=== PATIENT | female | born 1940 | race Caucasian/White ===

== ENCOUNTER → 2016-07-01 | Outpatient (CLI) | payer OTHER | LOC: RAD 04:49 | DX: Z12.31 Encounter for screening mammogram for malignant neoplasm of breast (principal) ==

== ENCOUNTER → 2017-07-03 | Outpatient (CLI) | payer OTHER | LOC: RAD 01:13 | DX: Z12.31 Encounter for screening mammogram for malignant neoplasm of breast (principal) ==

== ENCOUNTER → 2018-02-12 | Outpatient (CLI) | payer OTHER ==
[~2018-02-12] VITALS: Ht 180.3 cm; Wt 117.9 kg
[~2018-02-12] MED LIST: ASPIR 8181 MG PO; ATENOLOL 100MG100 MG PO; CENTRUM SILVER1 EAC4 PO; CO Q-10100 M1 PO; FISH OIL 1,001000 M2 PO; LOSARTAN-HCTZ1 EAC2 PO; OMEPRAZOLE 20 M20 M1 PO; PRAVACHOL40 MG PO; SYNTHROID100 MC1 PO; TYLENOL325 MG PO; VITAMIN B-12500 MCG PO; VITAMIN D1000 UNI2 PO; VITAMIN E400 UNIT PO
--- NOTE | ~2018-02-12 | P ---
[facility] [place] [address] [address] PROCEDURE REPORT Name: EVONNE VELASCO Room #: REG [facility]#: [id number] Admission: 02/12/18 Attend Phys: Vidal Masters MD Discharge: Date of : 42 Report #: [id number] THIS REPORT FOR: //name// CC: Vidal Murphy BRIEF HISTORY: The patient is a 78-year-old woman known. She has a history of colon polyps and last exam was 3 years ago. She also has a history of microscopic colitis. She had a recent physical exam, was found to have Hemoccult positive stools. PREOPERATIVE DIAGNOSES: 1. Hemoccult-positive stools 2. History of colon polyps. 3. History of microscopic colitis. POSTOPERATIVE DIAGNOSIS: Small internal hemorrhoids. MEDICATIONS: Deep sedation with propofol per anesthesia. SPECIMENS: 1. Random biopsies, proximal colon, rule out colitis. 2. Random biopsies, distal colon, rule out colitis. ESTIMATED BLOOD LOSS: 3 mL. PROCEDURE: Colonoscopy to cecum and terminal ileum with biopsy. FINDINGS: Prior to propofol sedation, procedure of colonoscopy was discussed with the patient as well as potential risks and its complications. She indicates she understands and desires to proceed. DESCRIPTION OF PROCEDURE: With the patient in left lateral decubitus position, digital examination was completed, which revealed no abnormalities. Subsequently, the Olympus video colonoscope was introduced in the rectum, advanced under direct vision to the cecum. This was done was with minimal difficulty. Cecum was identified by the ileocecal valve and the appendiceal orifice. I was able to visualize the distal segment of terminal ileum, which was inspected and noted to be unremarkable. At that point, scope was slowly withdrawn and careful circumferential views obtained including retroflexion of the scope in the ascending colon. Upon slow withdrawal of the scope, the prep was excellent. The mucosa was within normal limits, normal vascular pattern, normal light reflex. As we withdrew the scope, the mucosa was inspected. Overall, the mucosa was intact. There were some very vague mild changes throughout the colon with mild loss of vascularity, mostly in the proximal colon, in somewhat distorted vascular pattern in the distal colon, but again, [facility] [address] [place] [address] PROCEDURE REPORT Name: EVONNE VELASCO Room #: REG [facility].#: [id number] Admission: 02/12/18 Attend Phys: Vidal Masters MD Discharge: Date of : 42 Report #: [id number] there were no ulcers or erosions. Multiple random biopsies were obtained in view of her history of microscopic colitis and problems with diarrhea. As far as Hemoccult-positive stools, no bleeding lesions were seen. Scope was withdrawn in the rectum and no abnormalities were seen. However, upon retroflexion, small nonbleeding hemorrhoids were seen. This was potentially the source of her Hemoccult-positive stools. Scope was withdrawn. The patient tolerated the procedure well. CONDITION OF THE PATIENT UPON DISCHARGE: Following procedure, the patient drowsy, arousable, conversant and will be discharged home when fully ambulatory. INSTRUCTIONS TO THE PATIENT AND FAMILY AT THE TIME OF DISCHARGE: No bleeding lesions were seen. The blood may have come from hemorrhoids. We will follow up on the path report with regard to microscopic colitis. She does have Colestid at home and she may continue to use Colestid as needed. She may require use of budesonide. Again, we will make further recommendations after review of the path report. No polyps were seen. Therefore, his typical recommendation will be to return in 10 years. At this point in life, there may be minimal benefit from continued routine surveillance. In addition, due to her diarrhea, we will have her return for followup in the office to further discuss strategies for long-term treatment of microscopic colitis. Last colonoscopy was 3 years ago. Withdrawal time from cecum was 11 minutes 29 seconds. By: 0900 0946 Vidal Masters MD /abel
--- NOTE | ~2018-02-12 | PATH ---
[facility] [address] [place] [address] PATHOLOGY RPT PROCEDURE Name: CRISTINA VELASCO Room #: REG [facility] [place].#: [id number] Admission: 02/12/18 Date of : 42 Discharge: Report #: [id number] Path Case #: [id number] [facility] Accession Number: [id number] . 01 Material submitted: . PART A: RANDOM BX AT PROX COLON RE: DIARRHEA R/O MICROSCOPIC COLITIS PART B: RANDOM BX OF DISTAL COLON RE: DIARRHEA R/O MICROSCOPIC COLITIS . 01 Clinical history: . Diarrhea, blood in stool . 02 Diagnosis: A. Large intestinal mucosa, proximal colon, endoscopic biopsy: - Mild to moderate acute colitis involving all fragments sampled. - Negative for microscopic colitis. - Negative for dysplasia or malignancy. . B. Large intestinal mucosa, distal colon, endoscopic biopsy: - Mild to moderate acute colitis involving all fragments sampled. - Negative for microscopic colitis. - Negative for dysplasia or malignancy. . (IUV:mml; 02/13/18) QLM/02/13/2018 . 02 Comment: Sections of the colonic mucosa designated "proximal colon and distal colon" show numerous foci of cryptitis, and a markedly cellular lamina propria composed predominantly of lymphocytes and plasma cells and occasional eosinophils. Surface ulceration is not identified. There are no crypt abscesses, granulomas or viral inclusions. The process affects all the fragments with a similar intensity. Given the description, the differential diagnosis includes active colitis due to an infectious etiology, acute diverticulitis, and inflammatory bowel disease, as well as medication-induced colitis. Please correlate with clinical as well as endoscopic findings. . (IUV:mml; 02/13/18) . 02 Electronically signed: . Vanessa Mir MD, Pathologist NPI- [id number] . 01 Gross description: . A. Received in formalin labeled "Cristina Velasco, random colon BX proximal colon re diarrhea, rule out microscopic colitis," are multiple segments of fernandez soft tissue measuring 0.9 x 0.4 x 0.1 cm in aggregate [address] [address] PATHOLOGY RPT PROCEDURE Name: CRISTINA VELASCO Room #: REG [facility]#: [id number] Admission: 02/12/18 Date of : 42 Discharge: Report #: [id number] Path Case #: [id number] dimensions. The specimen is filtered and entirely submitted in cassette A1. . B. Received in formalin labeled "Cristina Velasco, random BX of distal colon re diarrhea, rule out microscopic colitis," are multiple segments of fernandez soft tissue measuring 1.8 x 0.5 x 0.1 cm in aggregate dimensions. The specimen is filtered and entirely submitted in cassette B1. (TSD; 02/12/2018) TOB/TOB . 02 Pathologist provided ICD-10: K52.9 . 02 CPT . 835567, 145559 Specimen Comment: A courtesy copy of this report has been sent to Specimen Comment: [phone], . Specimen Comment: Report sent to / DR HERNADEZ Specimen Comment: A duplicate report has been generated due to demographic updates. Performed at: [address], [place] [id number] MD Farshad Bamu MD Phone: [phone] Performed at: [address] [id number] MD Vanessa Mir MD Phone: [phone]
== END | disposition home or self-care (01) ==
LOC: GI 06:51
DX: K52.9 Noninfective gastroenteritis and colitis, unspecified (principal); K64.8 Other hemorrhoids; I10 Essential (primary) hypertension; E78.5 Hyperlipidemia, unspecified; K21.9 Gastro-esophageal reflux disease without esophagitis; Z98.41 Cataract extraction status, right eye; G47.33 Obstructive sleep apnea (adult) (pediatric); Z85.3 Personal history of malignant neoplasm of breast; Z98.42 Cataract extraction status, left eye; Z87.19 Personal history of other diseases of the digestive system; Z86.010 Personal history of colon polyps; Z98.890 Other specified postprocedural states; Z90.710 Acquired absence of both cervix and uterus; Z90.49 Acquired absence of other specified parts of digestive tract; Z88.0 Allergy status to penicillin; Z88.8 Allergy status to other drugs, medicaments and biological substances; Z79.82 Long term (current) use of aspirin; Z79.899 Other long term (current) drug therapy
CPT/HCPCS: 62110; 62900

== ENCOUNTER → 2018-07-04 | Outpatient (CLI) | payer OTHER | LOC: RAD 15:15 | DX: Z12.31 Encounter for screening mammogram for malignant neoplasm of breast (principal) ==

== ENCOUNTER → 2019-08-05 | Outpatient (CLI) | payer OTHER | LOC: RAD 07:03 | DX: Z12.31 Encounter for screening mammogram for malignant neoplasm of breast (principal); Z85.3 Personal history of malignant neoplasm of breast ==

== ENCOUNTER → 2020-08-05 | Outpatient (CLI) | payer OTHER | LOC: RAD 10:07 | PROVIDERS: ATTEND Internal Medicine Hematology & Oncology | DX: Z12.31 Encounter for screening mammogram for malignant neoplasm of breast (principal) ==